=== PATIENT | female | born 1960 | race Hispanic/Latino ===

== ENCOUNTER 2021-04-03 17:34 | Emergency (ER) | payer SELFPAY | END 2021-04-03 18:50 | disposition left against medical advice (07) | LOC: ED 17:34 | DX: R53.1 Weakness (principal); Z53.21 Procedure and treatment not carried out due to patient leaving prior to being seen by health care provider ==

== ENCOUNTER 2021-04-06 14:43 | Emergency (ER) | payer MEDICARE ==
--- NOTE | 2021-04-06 15:55 | Emergency Department Report ---
ED General Adult HPI - General Stated complaint: SICK FROM BEING OUT OF THYROID MED Time Seen by Provider: 04/06/21 15:52 Source: patient Mode of arrival: Ambulatory Limitations: No Limitations - History of Present Illness Initial comments: Patient is a 60-year-old female presents emergency room with complaints of needing a medication refill. She states that she takes 125 mcg of levothyroxine daily and 1000 mg of twice daily metformin. She states that she has been out of her levothyroxine for approximately 7 to 10 days. She states that she still has a couple tablets of her Metformin left but is going to run out soon. She states that she has not yet set up a primary care doctor as she just recently moved. She states that she does feels some mild fatigue and brain fog when she gets off her levothyroxine. She denies any other medical history. No allergies to medications. - Related Data Previous Rx's Medication Instructions Recorded Last Taken Type Levothyroxine Sodium 125 mcg PO DAILY #30 capsule 04/06/21 Unknown Rx [Levothyroxine] Metformin HCl [metFORMIN] 1,000 mg PO BID #60 tablet 04/06/21 Unknown Rx Allergies Allergy/AdvReac Type Severity Reaction Status Date / Time No Known Allergies Allergy Verified 04/06/21 15:55 ED Review of Systems ROS: Stated complaint: SICK FROM BEING OUT OF THYROID MED Other details as noted in HPI Comment: All other systems reviewed and negative ED Past Medical Hx - Medications Home Medications: Home Medications Medication Instructions Recorded Confirmed Last Taken Type Levothyroxine Sodium 125 mcg PO DAILY #30 capsule 04/06/21 Unknown Rx [Levothyroxine] Metformin HCl [metFORMIN] 1,000 mg PO BID #60 tablet 04/06/21 Unknown Rx ED Physical Exam - General Limitations: No Limitations General appearance: alert, in no apparent distress - Head Head exam: Present: atraumatic, normocephalic - Eye Eye exam: Present: normal appearance - ENT ENT exam: Present: mucous membranes moist - Respiratory Respiratory exam: Absent: respiratory distress, accessory muscle use - Neurological Exam Neurological exam: Present: alert, oriented X3 - Psychiatric Psychiatric exam: Present: normal affect, normal mood - Skin Skin exam: Present: warm, dry, intact ED Course Vital Signs 04/06/21 16:00 Temperature 98.9 F Pulse Rate 77 Respiratory 12 Rate Blood Pressure 137/89 [Left] O2 Sat by Pulse 99 Oximetry ED Medical Decision Making - Medical Decision Making Patient is a 60-year-old female presents emergency room with complaints of needing a medication refill. She states that she takes 125 mcg of levothyroxine daily and 1000 mg of twice daily metformin. She states that she has been out of her levothyroxine for approximately 7 to 10 days. She states that she still has a couple tablets of her Metformin left but is going to run out soon. She states that she has not yet set up a primary care doctor as she just recently moved. She states that she does feels some mild fatigue and brain fog when she gets off her levothyroxine. She denies any other medical history. No allergies to medications. Vitals are stable. Patient given refill of her home medication for 30-day supply. Discussed the importance of primary care follow- up for management of her chronic illnesses. Advised patient Please take medication as prescribed. Follow-up with a primary care doctor. Return to emergency room for any new or worsening symptoms. Critical care attestation.: If time is entered above; I have spent that time in minutes in the direct care of this critically ill patient, excluding procedure time. ED Disposition Clinical Impression: Medication refill Disposition: 01 HOME / SELF CARE / HOMELESS Is pt being admited?: No Does the pt Need Aspirin: No Condition: Stable Additional Instructions: Please take medication as prescribed. Follow-up with a primary care doctor. Return to emergency room for any new or worsening symptoms. Prescriptions: Levothyroxine Sodium [Levothyroxine] 125 mcg PO DAILY #30 capsule Metformin HCl [metFORMIN] 1,000 mg PO BID #60 tablet Referrals: WINSTON TAVERAS MD [Staff Physician] - 3-5 Days [facility] [Provider Group] - 3-5 Days TIM RIVERA MD [Staff Physician] - 3-5 Days Time of Disposition: 15:54 Print Language: HEBREW
[2021-04-06 16:14] VITALS: BP 137/89
== END 2021-04-06 16:10 | disposition home or self-care (01) ==
LOC: ED 14:43
DX: R69 Illness, unspecified (principal); Z76.0 Encounter for issue of repeat prescription
CPT/HCPCS: 99281